=== PATIENT | male | born 1945 | race Caucasian/White ===

== ENCOUNTER → 2018-06-21 | Outpatient (CLI) | payer MEDICARE ==
[~2018-06-21] MED LIST: /TIOT18INH; /WARF25TA OR; /WARF5TA OR; ALDA25TA2; AMIODARONE PO; AMLO10TA; ASPI325T; BABY81CH OR; CALC600T10; CALCIUM+VIT D PO; CORE3.12 OR; CORE6.25; COSOPT; COSOPT OPTH OU; DEMA100T OR; DEMA100T PO; LASI40TA; METO5TAB2; NOVOLOG; PLAV75TA2; POTA20TA2; RAMI25CA PO; SIMIVASTATIN PO; TORSEMIDE; TRAZ50TA OR; VITA-113 SL; VITA50TA12 PO; VYTO10TA5; VYTO10TA5 OR; VYTORIN; ZEBE5TAB; novolog SQ
--- NOTE | 2018-06-27 15:05 | DEXA ---
AP SPINE L1 - L4 1.326 1.1 1.3 LT FEMUR TOTAL 1.133 1.0 1.0 LT NECK 0.999 -0.3 0.7 RT FEMUR TOTAL 1.118 0.9 0.9 RT NECK 1.012 -0.2 0.8 TOTAL BODY TOTAL OTHER COMMENTS: Normal bone densitometry of the spine and hips. The decreased density of the spine does not represent significant change. The decreased density of the left hip does not represent a significant change. The increased density of the right hip does not represent a significant change. The density of the spine has increased 9.7% since the initial exam on 04/02/2013. The spine density has decreased 1.4% since the most recent exam on 04/08/2016. The density of the left hip has increased 17.3% since the initial exam on 04/02/2013. The density of the left hip has decreased 0.1% since the most recent exam on 04/08/2016. The density of the right hip has increased 14.5% since the initial exam on 04/02/2013. The density of the right hip has increased 1.2% since the most recent exam on 04/08/2016. FOLLOW-UP: Recommendation for the next bone density exam: 5 years. [id number]
== END ==
LOC: M WHC 08:28
PROVIDERS: ATTEND Registered Nurse
DX: Z94.1 Heart transplant status (principal); Z13.820 Encounter for screening for osteoporosis; Z79.52 Long term (current) use of systemic steroids; M85.88 Other specified disorders of bone density and structure, other site; M85.851 Other specified disorders of bone density and structure, right thigh; M85.852 Other specified disorders of bone density and structure, left thigh

== ENCOUNTER → 2019-08-15 | Outpatient (REF) | payer MEDICARE, OTHER ==
[~2019-08-15] MED LIST changes: -/TIOT18INH; -/WARF25TA OR; -/WARF5TA OR; +COUM1TAB17 OR; +COUM1TAB18 OR; +SPIR1CAP
== END ==
LOC: M LAB REF 11:30
PROVIDERS: ATTEND Dermatology
DX: C44.310 Basal cell carcinoma of skin of unspecified parts of face (principal); L90.5 Scar conditions and fibrosis of skin; L57.0 Actinic keratosis

== ENCOUNTER → 2019-11-22 | Outpatient (CLI) | payer MEDICARE, OTHER ==
[~2019-11-22] MED LIST changes: +ASPI325T57 PO; +CALC600C3 PO; +CORE6.25 PO; +COSO1SOL3 OU; +MULT1TAB7 PO; +MYCO1TAB PO; +RAMI1CAP24 PO; +ROSU10TA6 PO; +TACR0.5C3 PO; +TACR1CAP3 PO; +TORS10TA3 PO; +VITA250C5 PO; +VITAD1000T PO; +ZINC1TAB2 PO
== END ==
LOC: M LABSMTC 11:40
PROVIDERS: ATTEND Anesthesiology
DX: Z01.818 Encounter for other preprocedural examination (principal); Z11.59 Encounter for screening for other viral diseases
CPT/HCPCS: C9803; U0003

== ENCOUNTER 2019-11-25 11:31 | Day surgery (SDC) | payer MEDICARE ==
[~2019-11-25] VITALS: Ht 177.8 cm; Wt 81.2 kg
[~2019-11-25 11:31] MED LIST changes: +NS 1,000 ML IV ONE
[2019-11-25] MEDS ORDERED: propofoL 200 MG/20 ML VIAL As Ordered ONE ×2 (12:36→12:46)
--- NOTE | 2019-11-25 12:58 | ROOR ---
Patient Name: Lian Hinton Procedure Date: 11/25/2019 12:33 PM Date of : 1945 Age: 73 Room: [facility] Gender: Male Note Status: Finalized Procedure: Total Colonoscopy to Cecum + Cold Snare Polypectomy Indications: Screening for colorectal malignant neoplasm Providers: Sami Mccollum MD Referring MD: BENITO COOMBS MD Requesting Provider: Medicines: Monitored Anesthesia Care Complications: No immediate complications. Procedure: Pre-Anesthesia Assessment: - The heart rate, respiratory rate, oxygen saturations, blood pressure, adequacy of pulmonary ventilation, and response to care were monitored throughout the procedure. The Colonoscope was introduced through the anus and advanced to the cecum, identified by appendiceal orifice and ileocecal valve. The colonoscopy was performed without difficulty. The patient tolerated the procedure well. The quality of the bowel preparation was excellent. Findings: The perianal and digital rectal examinations were normal. Non-bleeding internal hemorrhoids were found during retroflexion. The hemorrhoids were small and Grade I (internal hemorrhoids that do not prolapse). Scattered small-mouthed diverticula were found in the recto-sigmoid colon, sigmoid colon and descending colon. A small polyp was found at 30 cm proximal to the anus. The polyp was sessile. The polyp was removed with a cold snare. Resection and retrieval were complete. The exam was otherwise without abnormality on direct and retroflexion views. Impression: - Non-bleeding internal hemorrhoids. - Diverticulosis in the recto-sigmoid colon, in the sigmoid colon and in the descending colon. - One small polyp at 30 cm proximal to the anus, removed with a cold snare. Resected and retrieved. - The examination was otherwise normal on direct and retroflexion views. - The exam was otherwise normal to the cecum. Recommendation: - Patient has a contact number available for emergencies. The signs and symptoms of potential delayed complications were discussed with the patient. Return to normal activities tomorrow. Written discharge instructions were provided to the patient. - High fiber diet. - Discharge patient to home. - Continue present medications. - Await pathology results. - Telephone GI clinic for pathology results in 1 week. - Repeat colonoscopy for surveillance based on pathology results. - Return to referring physician. - The findings and recommendations were discussed with the patient's family. Sami Mccollum MD Sami Mccollum MD 11/25/2019 12:58:15 PM Electronically signed by Sami Mccollum MD Number of Addenda: 0 Note Initiated On: 11/25/2019 12:33 PM Estimated Blood Loss: Estimated blood loss: none.
[2019-11-25 13:37] VITALS: BP 112/62
== END 2019-11-25 13:38 | disposition home or self-care (01) ==
LOC: M OPP 11:31
PROVIDERS: ATTEND Internal Medicine Gastroenterology
DX: Z12.11 Encounter for screening for malignant neoplasm of colon (principal); K63.5 Polyp of colon; K57.30 Diverticulosis of large intestine without perforation or abscess without bleeding; K64.0 First degree hemorrhoids; Z79.4 Long term (current) use of insulin; Z79.82 Long term (current) use of aspirin; Z79.899 Other long term (current) drug therapy; Z91.041 Radiographic dye allergy status

== ENCOUNTER → 2024-10-28 | Outpatient (CLI) | payer MEDICARE ==
[~2024-10-28] MED LIST changes: -COSO1SOL3 OU; +DORZ10DR10 OU; -NS 1,000 ML IV ONE; -RAMI1CAP24 PO; +RAMI5CAP60 PO; -ROSU10TA6 PO; +ROSU10TA61 PO; +VITA100093 PO; -VITAD1000T PO
== END ==
LOC: M SLEEP 20:00
PROVIDERS: ATTEND Internal Medicine Pulmonary Disease
DX: G47.33 Obstructive sleep apnea (adult) (pediatric) (principal)